=== PATIENT | female | born 1995 | race Caucasian/White ===

== ENCOUNTER → 2019-10-04 | Outpatient (CLI) | payer BC ==
[~2019-10-04] MED LIST: OMNIPAQUE 350 MG/ML, 100ML BOTTLE ONE
== END | disposition home or self-care (01) ==
LOC: RAD 14:31
PROVIDERS: ATTEND Physician Assistant
DX: J01.01 Acute recurrent maxillary sinusitis (principal); R04.2 Hemoptysis
CPT/HCPCS: 71275; Q9967